=== PATIENT | male | born 1995 | race Two or more races ===

== ENCOUNTER 2017-08-26 19:22 | Emergency (ER) | payer SELFPAY ==
[~2017-08-26] VITALS: Ht 193 cm; Wt 91.4 kg
[~2017-08-26 19:22] MED LIST: MOBIC15 MG PO; NOHOMEMEDS; TESSALON PERLE100 MG PO
[2017-08-26 20:17] LABS: HEMATOCRIT 47.9 % (38.0-50.0); HEMOGLOBIN 17.2 G/DL (12.5-16.6); MCH 32.3 PG (29.0-34.0); MCHC 35.9 G/DL (30.0-36.0); PLATELET COUNT 176 K/uL (156-360); RBC DIS.WIDTH-CV 11.2 % (11.8-14.6); RBC DIS.WIDTH-SD 36.8 % (39-53); RED BLOOD COUNT 5.32 M/uL (4.00-5.50); WHITE BLOOD COUNT 8.2 K/uL (4.1-10.2)
[2017-08-26 20:27] LABS: ALBUMIN 4.1 g/dL (3.2-4.8); CHLORIDE 107 mEq/L (99-109); SODIUM 142 mEq/L (136-147)
[2017-08-26 20:29] LABS: GLUCOSE 88 mg/dL (70-99); TOTAL PROTEIN 7.2 g/dL (6.4-8.3)
[2017-08-26 20:31] LABS: TOTAL BILIRUBIN 0.5 mg/dL (0.0-1.0)
[2017-08-26 20:33] LABS: ALKALINE PHOSPHATASE 92 IU/L (3-129); CREATININE 1.1 mg/dL (0.6-1.3); GFR ESTIMATE (CALCULATED) > 59 mL/min/ (58.99-99999)
[2017-08-26 20:34] LABS: UREA NITROGEN (BUN) 11 mg/dL (9-23)
[2017-08-26 20:35] LABS: AST (GOT) 23 IU/L (2-34)
[2017-08-26 20:36] LABS: ALT (GPT) 21 IU/L (3-49)
[2017-08-26 21:41] LABS: MONOSPOT (MONONUCLEOSIS SEROL) NEGATIVE
[2017-08-26 21:44] LABS: APPEARANCE CLEAR ((CLEAR)); BILIRUBIN NEGATIVE; BLOOD NEGATIVE; COLOR YELLOW ((YELLOW)); GLUCOSE (STRIP) NEGATIVE; KETONES NEGATIVE; LEUKOCYTES TRACE; NITRITE NEGATIVE; PROTEIN (STRIP) 30; SPECIFIC GRAVITY 1.025 (1.000-1.030)
[2017-08-26 22:08] LABS: BACTERIA NONE SEEN /HPF; EPITHELIAL CELLS RARE /HPF; MUCUS TRACE /LPF; RED BLOOD CELLS 0-5 /HPF (0-5); UCUL ADDED? YES
[2017-08-26 22:11] VITALS: BP 131/67
== END 2017-08-26 22:12 | disposition home or self-care (01) ==
LOC: EME 19:22
PROVIDERS: Nurse Practitioner Family
DX: J02.9 Acute pharyngitis, unspecified (principal); H92.01 Otalgia, right ear; F90.9 Attention-deficit hyperactivity disorder, unspecified type
CPT/HCPCS: 80053; 81003; 85027; 86308; 87086; 87651 90; 99281; 99284; J1100